=== PATIENT | male | born 1995 | race Caucasian/White ===

== ENCOUNTER 2017-07-04 12:22 | Emergency (ER) | payer MEDICAID, SELFPAY ==
[2017-07-04 12:24] VITALS: BP 126/87; PULSE 98; RESP 16; TEMP 36.4; O2SAT 100; BMI 18.6
--- NOTE | 2017-07-04 12:44 | ED.VISSUMM ---
- ER Visit Summary Date of Service: 07/04/17 Chief Complaint: Dehydrated History of Present Illness: The patient is a 22 M who presents with dehydration. He said he drank 5 light beers and 2 shots of hard alcohol last night. Today he feels nausea and he has been vomiting. He thinks he overdid it. Denies any significant medical history. Denies any other drug use. Physical Examination: Afebrile and vital signs unremarkable. Nontoxic and in no acute distress. Moves all extremities. Heart regular. Lungs clear. Abdomen soft. I did evaluate his skin where he had a prior MRSA infection. He asked me to check this, and it shows a scar. There is no evidence of erythema, induration, discharge, warmth, or fluctuance. Test Results: None indicated. Emergency Department Course and Treatment: I suspect this is related to drinking last night. He is not clinically dehydrated, but does appear slightly dry. Nothing to suggest AKA or more serious disease process. Patient was treated with Zofran and we will try a PO challenge. Treatment Plan: As above Disposition: Disharge Impression: Vomiting This note was generated with orderbolt dictation software. It may contain incorrect words, spelling, and punctuation that were not noted in review of the chart prior to signing ED Disposition - Plan for ED Patient: Chief Complaint: Nausea/Vomiting Referrals: Care Physician,No Primary [Primary Care Provider] -
--- NOTE | 2017-07-04 12:51 | ED.RN ---
DR DOUGLAS NOTIFIED BY THIS NURSE PT HAD A BRIEF PERIOD OF TUNNEL VISION AND LIGHT HEADEDNESS
[2017-07-04] MEDS: Ondansetron ODT 4 MG Tablet PO (12:52)
--- NOTE | 2017-07-04 13:32 | ED.DEP ---
ED Disposition - Plan for ED Patient: Chief Complaint: Nausea/Vomiting Instructions: ED Nausea Vomiting Prescriptions: Ondansetron [Zofran Odt] 4 mg PO Q8H PRN PRN #10 tab PRN Reason: Nausea Referrals: Jamir Randolph DO [NON-STAFF] -
[2017-07-04 13:45] VITALS: PULSE 91; RESP 14
== END 2017-07-04 13:45 | disposition home or self-care (01) ==
PROVIDERS: Emergency Provider Emergency Medicine
DX: R11.2 Nausea with vomiting, unspecified (principal); Z86.14 Personal history of Methicillin resistant Staphylococcus aureus infection
CPT/HCPCS: 99283

== ENCOUNTER 2017-10-29 19:25 | Emergency (ER) | payer MEDICAID, SELFPAY ==
--- NOTE | 2017-10-29 19:25 | DT_ITS ---
This patient was seen during an EMR downtime October 29, 2017 - November 05, 2017. This patient may have a combination of paper and electronic documentation or all paper documentation. All documentation is viewable within the e-chart portion of [facility] for each patient visit.
== END 2017-10-29 21:00 | disposition left against medical advice (07) ==
LOC: ED 10-31 15:22
PROVIDERS: Emergency Provider Emergency Medicine
DX: R69 Illness, unspecified (principal)

== ENCOUNTER 2019-11-06 12:39 | Emergency (ER) | payer MEDICAID, SELFPAY ==
[2019-11-06 12:40] VITALS: BP 131/68; PULSE 93; RESP 16; TEMP 36.3; O2SAT 99; BMI 17.9
--- NOTE | 2019-11-06 13:00 | RAD_ITS ---
STUDY: X-RAY - LEFT HAND, ATTENTION THIRD FINGER REASON FOR EXAM: Male, 24 years old. BASEBALL VS DISTAL MIDDLE FINGER TECHNIQUE: 3 view(s) of the finger were obtained. COMPARISON: Comparison is made with prior study dated October 07, 2012. FINDINGS: Normal metacarpal head. Normal metacarpophalangeal joint. Normal proximal phalanx. Normal middle phalanx. Nondisplaced avulsion fracture at the base of the distal phalanx along its dorsal aspect. Normal proximal interphalangeal joint. Normal distal interphalangeal joint. Soft tissue swelling. RAD/Finger(s) Min 2 Views IMPRESSION: Avulsion fracture along the dorsal aspect at the base of the distal phalanx of the third digit. Soft tissue swelling. Electronically Signed: Lincoln Gallo, at 13:46 EDT , Service support ,
--- NOTE | 2019-11-06 13:01 | ED.DCSUM_ITS ---
- ER Visit Summary Date of Service: 11/06/19 Chief Complaint: Left long finger pain after catching a baseball. History of Present Illness: The patient is a 24 M [id number]. Prior fractures to his left hand but no prior surgery. He states he was catching baseball for a picture that was throwing very hard yesterday. He said the globe was not padded very well and has had pain in the distal end of his left long finger since yesterday. Denies any pain, injury, redness or swelling since before he was catching a baseball. Physical Examination: Young male no acute distress vital signs stable afebrile. H EENT exam unremarkable. Lungs clear. Heart regular rhythm no murmur. M soft nontender. Remedies moves all 4. Left hand left long finger distal and is red and tender to palpation. No bony deformity. No obvious signs of infection. No gross bony deformity. He is tender to distal tip of his left long finger and the DIP. There is no sausage digit. No lymphangitic streaking. Test Results: X-ray left long finger 2 views read by myself shows a fracture of the proximal end of the distal phalanx of the left long finger. Emergency Department Course and Treatment: X-ray to be obtained to rule out f racture. Historically there is no signs of infection. This only occurred after he was catching the baseball. I went over the x-ray with the patient. Aluminum splint will be applied. He will follow-up with Dr. Rose. Treatment Plan: Ice and elevate. Tylenol Motrin for pain. Follow-up if not improving. Return if worse. Disposition: Discharge Impression: Acute left long finger distal phalanx fracture status post trauma This note was generated with [employer] software. It may contain incorrect words, spelling, and punctuation that were not noted in review of the chart prior to signing ED Disposition - Plan for ED Patient: Referrals: Care Physician,No Primary [Primary Care Provider] -
--- NOTE | 2019-11-06 14:12 | ED.DEP ---
ED Disposition - Plan for ED Patient: Disposition: Home or Assisted Living Instructions: ED FINGER FRACTURE Closed Referrals: Gabriela Rose DO [STAFF PHYSICIAN] - As soon as possible Additional Instructions: You have a fracture break in the end of your finger. Leave it splinted. To immobilize the fracture. Follow-up with orthopedics. Ice and elevate. Tylenol and Motrin for pain and swelling.
== END 2019-11-06 14:24 | disposition home or self-care (01) ==
PROVIDERS: Emergency Provider Emergency Medicine
DX: S62.663A Nondisplaced fracture of distal phalanx of left middle finger, initial encounter for closed fracture (principal); W21.03XA Struck by baseball, initial encounter; Y93.64 Activity, baseball; Y92.9 Unspecified place or not applicable; Y99.9 Unspecified external cause status
CPT/HCPCS: 73140; 99283

== ENCOUNTER 2020-11-16 02:00 | Emergency (ER) | payer MEDICAID, SELFPAY ==
[2020-11-16 02:00] VITALS: BP 114/57; PULSE 61; RESP 18; TEMP 36.5; O2SAT 98; BMI 17.4
[2020-11-16 02:02] VITALS: BP 114/57; PULSE 61; RESP 18; TEMP 36.5; O2SAT 98
--- NOTE | 2020-11-16 02:08 | EX.ED.DYSGE1 ---
HPI History of Present Illness Chief Complaint: Bite Informant: patient Onset/Context/Timing Onset: Today Context: Sudden Onset Location: Left lower leg Current Severity: Mild Worsened by: Nothing Relieved by: Nothing Associated Symptoms Associated Symptoms: None Narrative Narrative: Patient was bit by a dog left lower leg shortly prior to arrival. The dog is currently in custody and can be observed. Patient's last tetanus immunization was 2016. Denies associated symptoms like weakness or numbness. Prior similar symptoms: No Recent Illness/Hospitalization: No PFSH PFSH Home Medications doxycycline hyclate 100 mg PO BID #14 tab 11/16/20 [Rx Last Taken Unknown] naproxen 500 mg PO BID #14 tab 11/16/20 [Rx Last Taken Unknown] Allergy/AdvReac Type Severity Reaction Status Date / Time Penicillins AdvReac Nausea/Vom/ Verified 11/06/19 12:40 Diarrhea Social History Smoking Status: Current every day smoker tobacco type: cigarettes ROS ROS ED Constitutional Constitutional ED: Denies fever(s) Eyes Eyes: Denies change in vision ENT ENT ED: Denies ear pain Cardiovascular Cardiovascular: Denies chest pain Respiratory/Chest Respiratory/Chest: Denies dyspnea Gastrointestinal Gastrointestinal: Denies abdominal pain Genitourinary Genitourinary ED: Denies dysuria Musculoskeletal Musculoskeletal: Denies arthralgias, back pain, myalgias or neck pain Integumentary Reports Abrasions; Denies abscess or rash Neurologic Neurologic: Denies headache(s), paresthesias or weakness Psychiatric Psychiatric: Denies anxiety or depression Endocrine Endocrinology: Denies polydipsia or polyuria Allergic/Immunologic Allergic/Immunologic ED: Denies mouth swelling or urticaria EXAM Physical Exam Const Vital Signs: 11/16/20 02:00 11/16/20 02:02 Temperature 97.7 F L 97.7 F L Temperature Source Temporal Temporal Pulse Rate 61 61 Respiratory Rate 18 18 Blood Pressure 114/57 L 114/57 L Blood Pressure Mean 76 76 Pulse Ox 98 98 Oxygen Delivery Method Room Air Room Air Positive well nourished and well developed General Appearance ED: well developed Eyes EOMs intact bilaterally Neck supple Resp normal respiratory effort Extremity Extremity Narrative: Multiple abrasions to the left lower extremity posterior to the knee and involving the medial left lower leg. There is 1 laceration, approximately 1 cm in length which is full-thickness. No foreign bodies visualized. No active bleeding. No discharge. No redness or warmth. Neuro oriented x3 and no sensory deficits noted Sensorium / Orientation: alert Motor Exam: strength 5/5 throughout Psych mental status grossly normal Skin Skin Narrative: As above Wounds: wounds noted MDM MDM MDM Narrative Medical decision making narrative: Tetanus immunization is up-to-date. No indication for rabies vaccination or immunoglobulins. Nothing to suggest foreign body, fracture, infection, neurologic injury, vascular injury, compartment syndrome. Wounds were cleaned. Bacitracin applied. 1 cm laceration was left open to prevent infection. This was discussed with the patient. He is penicillin allergic and was started on doxycycline. Follow-up as an outpatient. Return for signs of infection like redness, warmth, swelling, drainage, or increasing pain. Discharge Plan Triage Chief Complaint: Bite ED Provider: Jann David Dx/Rx/DC Orders Clinical Impression: Dog bite of left lower leg Instructions: ED Dog Bite Prescriptions: New doxycycline hyclate 100 mg tablet 100 mg PO BID Qty: 14 RF: 0 naproxen 500 mg tablet 500 mg PO BID Qty: 14 RF: 0 Primary Care Provider: Care Physician,No Primary Referrals: Faith Gresham [NON-STAFF] - 2 Days for wound check Care Physician,No Primary [Primary Care Provider] - Disposition Disposition: Home, self care
[2020-11-16] MEDS: BACITRACIN 15 GM Tube 1 APPLIC TOPICAL (02:12)
[2020-11-16] MEDS: Doxycycline 100 MG CAPSULE PO (02:12)
== END 2020-11-16 02:22 | disposition home or self-care (01) ==
LOC: ED 02:21
PROVIDERS: Emergency Provider Emergency Medicine
DX: S81.852A Open bite, left lower leg, initial encounter (principal); W54.0XXA Bitten by dog, initial encounter; Y93.9 Activity, unspecified; Y92.9 Unspecified place or not applicable; Y99.9 Unspecified external cause status; F17.210 Nicotine dependence, cigarettes, uncomplicated
CPT/HCPCS: 99283

== ENCOUNTER 2020-12-27 00:35 | Emergency (ER) | payer MEDICAID, SELFPAY ==
[2020-12-27 00:37] VITALS: BP 114/79; PULSE 88; RESP 14; TEMP 37.1; O2SAT 98; BMI 18.3
--- NOTE | 2020-12-27 03:13 | RAD_ITS ---
EXAM: XR RIGHT HAND COMPLETE, 3 OR MORE VIEWS : 1996 CLINICAL INDICATION: Injury/Pain TECHNIQUE: Frontal, lateral and oblique views of the right hand. This report was created using [employer] report xaitment technology. COMPARISON: None. FINDINGS: BONES/JOINTS: Unremarkable. No acute fracture. No subluxation. Normal alignment. Preservation of the joint space. No sclerotic or destructive changes observed. SOFT TISSUES: Unremarkable. No soft tissue swelling or gas. No radiopaque foreign body. RAD/Hand Min 3 Views IMPRESSION: Negative right hand x-rays. No radiopaque foreign body. at 0345 Reported and signed by: Jatin Kitchen MD Electronically Signed: Jatin Kitchen MD at 3:45 EDT Tel , Service support ,
--- NOTE | 2020-12-27 05:16 | EDS_ITS ---
HPI History of Present Illness HPI Narrative: Patient presents with laceration to his right hand that occurred today. Patient states he cut it on broken glass. Patient states that his last tetanus was within 5 years. Patient describes his pain as throbbing. Patient states nothing makes it worse and nothing makes it better. Patient denies any paresthesias or weakness. Patient denies any other injuries. Chief Complaint: Laceration Informant: patient Occured/Mechanism Comment: Cut on broken glass Onset/Context/Timing Onset: Today Context: Sudden Onset Timing: Continuous Quality of Pain: Throbbing Worsened by: Nothing Relieved by: Nothing Associated Symptoms Associated Symptoms: Negative for Parasthesia, Weakness and Loss of Funtion PFSH PFSH no medical history Allergy/AdvReac Type Severity Reaction Status Date / Time Penicillins AdvReac Nausea/Vom/ Verified 12/27/20 00:36 Diarrhea Social History Smoking Status: Current every day smoker tobacco type: e-cigarettes ROS ROS ED Constitutional Constitutional ED: Denies chills or fever(s) Eyes Eyes: Denies blurry vision or change in vision ENT ENT ED: Denies rhinorrhea or sore throat Cardiovascular Cardiovascular: Denies chest pain or palpitations Respiratory/Chest Respiratory/Chest: Denies cough or dyspnea Gastrointestinal Gastrointestinal: Denies nausea or vomiting Genitourinary Genitourinary ED: Denies dysuria or hematuria Musculoskeletal Musculoskeletal: Reports back pain; Denies neck pain Integumentary Denies abscess or rash Neurologic Neurologic: Denies headache(s) or weakness Allergic/Immunologic Allergic/Immunologic ED: Denies mouth swelling or urticaria EXAM Physical Exam Const Vital Signs: 12/27/20 00:37 Temperature 98.8 F Temperature Source Temporal Pulse Rate 88 Respiratory Rate 14 Blood Pressure 114/79 Blood Pressure Mean 90 Pulse Ox 98 Oxygen Delivery Method Room Air Positive well nourished and well developed General Appearance ED: well developed HEENT Reports moist mucous membranes Neck full ROM and supple Extremity normal to inspection and full ROM Neuro oriented x3, CN's II-XII intact bilaterally, moves all extremities, no focal motor deficits and no sensory deficits noted Sensorium / Orientation: alert Skin Skin Narrative: Skin is warm dry. There is a 2 cm full-thickness curvilinear laceration on the palmar aspect of the right hand over the first MCP joint. There is mild bleeding. There are no foreign bodies noted. There are no tendon lacerations noted. Strength is 5/5 in flexion and extension of the IP and MP joints of the right thumb. Sensation was intact to light touch in all digits. Capillary refill is less than 2 seconds in all digits. MDM MDM MDM Narrative Medical decision making narrative: X-rays of the right hand were obtained. There are 3 views. On my interpretation, there is no acute fracture. There is no foreign body noted. There is no dislocation. There is no soft tissue swelling. Radiologist also interpreted the x-rays and agrees. The wound was cleaned and irrigated with copious amounts of normal saline. The wound was anesthetized with 1% plain lidocaine locally. The wound was closed with 3 simp le interrupted #4-0 nylon sutures under sterile technique. Patient tolerated the procedure well. Bacitracin dressing was applied. Patient was instructed to take Tylenol or ibuprofen as needed for pain. Patient was instructed to follow- up with his primary care physician in 5 days for wound recheck and suture removal. Patient understood and was agreeable with the plan. All questions were answered. Radiography Diagnostic Testing: Radiology Impression Hand X-Ray 12/27/20 03:13 IMPRESSION: Negative right hand x-rays. No radiopaque foreign body. at 0345 Reported and signed by: Jatin Kitchen MD Electronically Signed: Jatin Kitchen MD at 3:45 EDT Tel , Service support , Procedures Lacerations Right hand: Length: 2 cm Depth: Sub Q Shape: Linear Prep: Sterile Conditions and Chlorhexadine Laceration repair: Irrigated, Local, Skin sutures and Wound explored Irrigated (ml): 60 Number of Sutures/Yaw: 3 Suture Information: Ethilon, Simple and 4-0 Discharge Plan Triage Chief Complaint: Laceration ED Provider: Jagdeep Ray Dx/Rx/DC Orders Clinical Impression: Laceration of hand, right Instructions: ED Laceration, Hand: All Closures Primary Care Provider: Care Physician,No Primary Referrals: Timothy Hopkins DO [STAFF PHYSICIAN] - 5 Days for suture removal Care Physician,No Primary [Primary Care Provider] - Disposition Disposition: Home, Self Care Discharge Date/Time: 12/27/20 05:55
== END 2020-12-27 05:55 | disposition home or self-care (01) ==
PROVIDERS: Emergency Provider Emergency Medicine
DX: S61.411A Laceration without foreign body of right hand, initial encounter (principal); W25.XXXA Contact with sharp glass, initial encounter; Y93.9 Activity, unspecified; Y92.9 Unspecified place or not applicable; Y99.9 Unspecified external cause status; F17.290 Nicotine dependence, other tobacco product, uncomplicated
CPT/HCPCS: 73130; 99282